=== PATIENT | male | born 1975 | race Caucasian/White ===

== ENCOUNTER 2017-02-17 15:21 | Emergency (ER) | payer OTHER ==
[2017-02-17 19:08] LABS: AUTOMATED NEUTROPHIL # 5.7 TH/MM3 (1.8-7.7); BASOPHIL # 0.1 TH/MM3 (0-0.2); BASOPHIL % 0.8 % (0.0-2.0); EOSINOPHIL % 0.6 % (0.0-4.0); LYMPH % 18.5 % (9.0-44.0); LYMPHOCYTE # 1.4 TH/MM3 (1.0-4.8); MEAN CELL VOLUME 84.2 FL (80.0-100.0); MEAN CORPUSCULAR HGB CONC 34.5 % (32.0-36.0); MONO % 6.3 % (0.0-8.0); NEUT % 73.8 % (16.0-70.0); PLATELET COUNT 206 TH/MM3 (150-450); RED BLOOD COUNT 5.46 MIL/MM3 (4.50-5.90); RED CELL DISTRIBUTION WIDTH 13.1 % (11.6-17.2); WHITE BLOOD COUNT 7.7 TH/MM3 (4.0-11.0)
[2017-02-17 19:10] VITALS: BP 137/96; PULSE 83; RESP 18; TEMP 97.5; O2SAT 97
[2017-02-17 19:14] LABS: HEMO FLAGS AUTO DIFF
[2017-02-17 19:16] LABS: AMPHETAMINE, URINE NEG (NEG); BARBITURATES, URINE NEG (NEG); COCAINE, URINE NEG (NEG)
[2017-02-17 19:31] LABS: ANION GAP 7 MEQ/L (5-15)
[2017-02-17 19:34] LABS: ALKALINE PHOSPHATASE 119 U/L (45-117); ALT (GPT) 27 U/L (12-78); AST (GOT) 24 U/L (15-37); BICARBONATE 29.1 MEQ/L (21.0-32.0); BLOOD UREA NITROGEN 8 MG/DL (7-18); CHLORIDE 103 MEQ/L (98-107); GLOMERULAR FILTRATION RATE 82 ML/MIN (>89); POTASSIUM 3.8 MEQ/L (3.5-5.1); SODIUM (NA) 139 MEQ/L (136-145); TOTAL BILIRUBIN ADULT 0.6 MG/DL (0.2-1.0)
[2017-02-17 19:47] LABS: BANDS 9 % (0-6); BASOPHILS 1 % (0-2); NEUTROPHIL # MANUAL DIFF 5.2 TH/MM3 (1.8-7.7); POLYS (SEG NEUTROPHILS) 59 % (16-70); WBC DIFF SAMPLE 100
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
[2017-02-17 19:51] LABS: PLATELET ESTIMATE SMEAR NORMAL (NORMAL); PLATELET MORPHOLOGY NORMAL (NORMAL); SCAN/DIFF FINAL DIFF MANUAL
[2017-02-17] MEDS ORDERED: diphenhydrAMINE HCL 50 MG CAP PO ONE (22:15)
[2017-02-18] MEDS ORDERED: IBUPROFEN 600 MG TAB PO ONE (01:00)
[2017-02-18 02:03] VITALS: RESP 18
[2017-02-18 06:32] VITALS: BP 127/80; PULSE 86; RESP 18; TEMP 97.8; O2SAT 98
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
[2017-02-18 10:48] VITALS: BP 133/87; PULSE 77; RESP 18; O2SAT 99
[2017-02-18 18:13] VITALS: BP 125/84; PULSE 76; RESP 18; O2SAT 99
[2017-02-18 22:26] VITALS: BP 107/58; PULSE 99; RESP 18; O2SAT 98
[2017-02-18] MEDS ORDERED: cloNIDine HCL 0.1 MG TAB PO ONE (23:00)
[2017-02-19 02:25] VITALS: BP 105/61; PULSE 59; RESP 14; O2SAT 99
== END 2017-02-19 04:29 ==
LOC: NEPJ 15:21
DX: F43.25 Adjustment disorder with mixed disturbance of emotions and conduct (principal)
CPT/HCPCS: 80053; 80307; 85007; 85027; 99284; Q0163